=== PATIENT | female | born 1975 | race Caucasian/White ===

== ENCOUNTER 2023-01-05 06:38 | Emergency (ER) | payer OTHER ==
[2023-01-05] MEDS ORDERED: LIDOCAINE VISCOUS 2% ORAL/TOP 15 ML UNIT-DOSE CUP ONE (06:48)
[2023-01-05 06:49] VITALS: BP 126/72; PULSE 88; RESP 18; TEMP 98.6; BMI 24.2
== END 2023-01-05 07:23 | disposition home or self-care (01) ==
LOC: FER 06:38
PROC: 09C47ZZ Extirpation of Matter from Left External Auditory Canal, Via Natural or Artificial Opening (ICD-10-PCS; principal; 2023-01-05)
DX: T16.2XXA Foreign body in left ear, initial encounter (principal)
CPT/HCPCS: 99283-25

== ENCOUNTER → 2024-07-15 | Day surgery (SDC) | payer OTHER | END | disposition home or self-care (01) | LOC: JRADUS-SUR 08:12 | PROVIDERS: ATTEND Obstetrics & Gynecology | PROC: 0H9T3ZX Drainage of Right Breast, Percutaneous Approach, Diagnostic (ICD-10-PCS; principal; 2024-07-15) | DX: N60.02 Solitary cyst of left breast (principal) | CPT/HCPCS: 19000; 76942-TC; 87899; 88173; 88305-TC ==